=== PATIENT | female | born 1980 | race Caucasian/White ===

== ENCOUNTER 2022-03-11 09:33 | Emergency (ER) | payer BC ==
[~2022-03-11 09:33] MED LIST: COZAAR25 MG PO; DYAZIDE 37.5/251 EA PO; HYDROXYZINE HCL50 MG PO; NORCO 5-325 TA1 EACH PO; SYNTHROID25 MCG PO; ZOLOFT100 MG PO
[2022-03-11 10:09] LABS: RED BLOOD COUNT 3.5 M/UL (4.00-5.10); WHITE BLOOD COUNT 15.2 K/UL (4.5-11.0)
[2022-03-11 10:38] LABS: BUN/CREATININE RATIO 11 (0-10)
[2022-03-11] MEDS ORDERED: ONDANSETRON ODT4 MG PO (11:15)
[2022-03-11] MEDS ORDERED: MIRALAX17 GM PO (11:15)
[2022-03-11] MEDS ORDERED: AMOX TR-K CLV1 EAC4 PO (11:15)
== END 2022-03-11 13:05 | disposition home or self-care (01) ==
LOC: ER1 09:33
PROVIDERS: Nurse Practitioner
DX: K52.89 Other specified noninfective gastroenteritis and colitis (principal); K59.00 Constipation, unspecified; E87.1 Hypo-osmolality and hyponatremia; I10 Essential (primary) hypertension; Z90.710 Acquired absence of both cervix and uterus; Z90.89 Acquired absence of other organs; Z79.899 Other long term (current) drug therapy
CPT/HCPCS: 80053; 81001; 83605; 85025; 87086; 96365; 96375; 99284; J1885; J2405